=== PATIENT | female | born 1995 | race Caucasian/White ===

== ENCOUNTER 2016-11-01 23:49 | Emergency (ER) | payer OTHER ==
[~2016-11-01] VITALS: Ht 154.9 cm; Wt 63.5 kg
[~2016-11-01 23:49] MED LIST: 'PARAFON FORTE500 M1 PO; BACTRIM DS 8001 TA1 PO; BENADRYL25 MG PO; BIAXIN500 MG PO; BIRTH CONTROL1 EAC1 PO; CLARITIN-D 12 H1 TAB PO; CLARITIN10 MG PO; CLEOCIN150 MG PO; CONCERTA36 MG PO; FLINTSTONES W/I1 CTB PO; FLONASE ALLERG9.9 ML NAS; IBU800 MG PO; KEFLEX500 MG PO; KENALOG 0.1% OI15 GM T; LIDEX 0.05% GEL60 GM PO; LIDEX0.05% T; MACROBID100 M1 PO; MOTRIN400 MG PO; MOTRIN600 MG PO; MOTRIN800 MG PO; NAPROSYN500 MG PO; NASONEX0.05 MG/AC NS; NKHM; PREDNICOT20 MG PO; PREDNISONE10 MG PO; PREDNISONE20 MG PO; PRENATAL1 TA1 PO; PRENATAL1 TA6 PO; ROBITUSSIN AC 110 ML PO; TRAMADOL HCL50 MG PO; TYLENOL W/CODE480 ML PO; TYLENOL W/CODEI1 TA2 PO; ZITHROMAX Z PA250 MG PO; ZITHROMAX200 MG/5 M PO; ZITHROMAX250 MG PO; ZOFRAN ODT4 MG SL; ZYRTEC10 MG PO; Zofran4 MG PO
[2016-11-02] MEDS ORDERED: NORCO 5-325 TA1 EACH PO (01:45)
== END 2016-11-02 01:58 | disposition home or self-care (01) ==
LOC: ED 23:49
DX: S43.005A Unspecified dislocation of left shoulder joint, initial encounter (principal); S29.019A Strain of muscle and tendon of unspecified wall of thorax, initial encounter; F17.200 Nicotine dependence, unspecified, uncomplicated; Z88.0 Allergy status to penicillin; X58.XXXA Exposure to other specified factors, initial encounter; Y93.89 Activity, other specified; Y92.89 Other specified places as the place of occurrence of the external cause; Y99.8 Other external cause status

== ENCOUNTER 2017-01-15 21:29 | Emergency (ER) | payer OTHER ==
[~2017-01-15] VITALS: Ht 167.6 cm; Wt 65.8 kg
[~2017-01-15 21:29] MED LIST changes: +NORCO 5-325 TA1 EACH PO
[2017-01-15] MEDS ORDERED: ZITHROMAX250 MG PO (22:28)
== END 2017-01-15 22:34 | disposition home or self-care (01) ==
LOC: ED 21:29
DX: J40 Bronchitis, not specified as acute or chronic (principal); Z88.0 Allergy status to penicillin; Z88.8 Allergy status to other drugs, medicaments and biological substances

== ENCOUNTER 2017-03-15 16:24 | Emergency (ER) | payer OTHER ==
[~2017-03-15] VITALS: Wt 61.2 kg
[2017-03-15] MEDS ORDERED: ALLEGRA-D 24 H1 EACH PO (18:27)
[2017-03-15] MEDS ORDERED: FLONASE ALLERG9.9 ML NAS (18:27)
[2017-03-15] MEDS ORDERED: ZITHROMAX250 MG PO (18:27)
[2017-03-15] MEDS ORDERED: PROAIR HFA8.5 GM INH (18:28)
== END 2017-03-15 19:37 | disposition home or self-care (01) ==
LOC: ED 16:24
DX: J01.90 Acute sinusitis, unspecified (principal); J40 Bronchitis, not specified as acute or chronic; R11.2 Nausea with vomiting, unspecified; R42 Dizziness and giddiness; J45.909 Unspecified asthma, uncomplicated; F17.200 Nicotine dependence, unspecified, uncomplicated; Z88.0 Allergy status to penicillin

== ENCOUNTER → 2017-08-04 | Outpatient (CLI) | payer OTHER ==
[~2017-08-04] MED LIST changes: +ALLEGRA-D 24 H1 EACH PO; +PROAIR HFA8.5 GM INH
== END | disposition home or self-care (01) ==
LOC: RAD 15:44
DX: S13.4XXA Sprain of ligaments of cervical spine, initial encounter (principal); S16.1XXA Strain of muscle, fascia and tendon at neck level, initial encounter; Z91.81 History of falling; X58.XXXA Exposure to other specified factors, initial encounter; Y93.89 Activity, other specified; Y92.89 Other specified places as the place of occurrence of the external cause; Y99.8 Other external cause status

== ENCOUNTER 2017-10-18 16:23 | Emergency (ER) | payer OTHER ==
[~2017-10-18] VITALS: Ht 154.9 cm; Wt 66.2 kg
[2017-10-18] MEDS ORDERED: MEDROL DOSEPAK4 MG PO (17:11)
[2017-10-18] MEDS ORDERED: PROAIR RESPICL90 MCG INH (17:11)
[2017-10-18] MEDS ORDERED: OMNICEF300 MG PO (17:11)
== END 2017-10-18 17:26 | disposition home or self-care (01) ==
LOC: ED 16:23
DX: J02.0 Streptococcal pharyngitis (principal); J40 Bronchitis, not specified as acute or chronic; F17.200 Nicotine dependence, unspecified, uncomplicated; Z88.0 Allergy status to penicillin; Z88.8 Allergy status to other drugs, medicaments and biological substances

== ENCOUNTER → 2017-11-11 | Outpatient (CLI) | payer OTHER ==
[~2017-11-11] MED LIST changes: +MEDROL DOSEPAK4 MG PO; +OMNICEF300 MG PO; +PROAIR RESPICL90 MCG INH
[2017-11-11 23:35] LABS: BASO % 0.4 % (0.0-1.0); EOS # 0.2 10*3/uL (0.0-0.4); EOS % 2.1 % (1.0-4.0); HEMATOCRIT 39.6 % (37.0-47.0); HEMOGLOBIN 13.3 g/dl (12.0-16.0); LYMPH # 3.3 10*3/uL (1.3-4.4); LYMPH % 36.9 % (27.0-41.0); MEAN CELL VOLUME 95.4 fl (81.0-99.0); MEAN CORPUSCULAR HGB CONC 33.6 g/dl (33.0-37.0); MEAN PLATELET VOLUME 11.1 fl (9.6-12.3); MONO # 0.6 10*3/uL (0.1-1.0); MONO % 6.4 % (3.0-9.0); NEUT # 4.8 10*3/uL (2.3-7.9); PLATELET COUNT AUTOMATED 206 10*3/uL (130-400); RED BLOOD COUNT 4.15 10*6/uL (4.10-5.10); RED CELL DISTRI WIDTH 12.6 % (0-14.5); WHITE BLOOD COUNT 8.9 10*3/uL (4.8-10.8)
== END | disposition home or self-care (01) ==
LOC: LAB 22:50
PROVIDERS: Pediatrics
DX: R21 Rash and other nonspecific skin eruption (principal)

== ENCOUNTER → 2017-11-17 | Outpatient (CLI) | payer OTHER ==
[2017-11-17 13:15] LABS: BASO % 0.6 % (0.0-1.0); EOS # 0.3 10*3/uL (0.0-0.4); EOS % 3.9 % (1.0-4.0); HEMATOCRIT 38.7 % (37.0-47.0); HEMOGLOBIN 12.7 g/dl (12.0-16.0); LYMPH # 3.3 10*3/uL (1.3-4.4); LYMPH % 45.7 % (27.0-41.0); MEAN CELL VOLUME 97.2 fl (81.0-99.0); MEAN CORPUSCULAR HGB 31.9 pg (27.0-31.0); MEAN CORPUSCULAR HGB CONC 32.8 g/dl (33.0-37.0); MEAN PLATELET VOLUME 11.2 fl (9.6-12.3); MONO # 0.6 10*3/uL (0.1-1.0); NEUT % 41.7 % (47.0-73.0); PLATELET COUNT AUTOMATED 179 10*3/uL (130-400); RED BLOOD COUNT 3.98 10*6/uL (4.10-5.10); RED CELL DISTRI WIDTH 12.5 % (0-14.5); WHITE BLOOD COUNT 7.2 10*3/uL (4.8-10.8)
[2017-11-17 14:01] LABS: ALBUMIN 3.8 gm/dl (3.1-4.5); BUN 14 mg/dl (7-24); CHLORIDE 107 mmol/L (98-107); CREATININE 0.67 mg/dL (0.55-1.02); SGOT/AST 16 IU/L (3-35); SGPT/ALT 17 U/L (12-78); SODIUM 141 mmol/L (136-145)
[2017-11-17 14:02] LABS: ALKALINE PHOSPHATASE 65 U/L (45-117)
== END | disposition home or self-care (01) ==
LOC: LAB 12:46
PROVIDERS: Nurse Practitioner Family
DX: L40.9 Psoriasis, unspecified (principal)

== ENCOUNTER 2018-11-20 22:41 | Emergency (ER) | payer OTHER ==
[~2018-11-20] VITALS: Ht 154.9 cm; Wt 68.0 kg
--- NOTE | ~2018-11-20 | EKG ---
[place], [place] ELECTROCARDIOGRAM REPORT NAME: JEMMA MERRITT UNIT #: [id number] ROOM: DOCTOR: EPIPHANY DRAFT REPORT BIRTHDATE: [birth year] [facility] Test Date: 2018-11-20 Test Time: 23:41:17 Pat Name: JEMMA MERRITT Department: ER Room: Gender: F Ergonomics Consultant: Markus Bennett : 1995 Requested By: ALEXANDREA BOWEN Order Number: [id number] Reading MD: Breezy Lowe MD Measurements Intervals [place] Rate: 95 P: 54 SC: 158 QRS: 37 QRSD: 83 T: 5 QT: 354 QTc: 445 Interpretive Statements Sinus rhythm Nonspecific ST T changes Electronically Signed On 11-24-2018 4:13:14 PDT by Breezy Lowe MD CM:[email or web address]:ELECTROCARDIOGRAM REPORT [id number] ALEXANDREA NESS DRAFT REPORT ALEXANDREA BOWEN DO
[2018-11-20 23:51] LABS: BASO # 0.1 10*3/uL (0.0-0.1); BASO % 0.5 % (0.0-1.0); EOS # 0.3 10*3/uL (0.0-0.4); EOS % 2.6 % (1.0-4.0); HEMATOCRIT 42.5 % (37.0-47.0); HEMOGLOBIN 14.2 g/dl (12.0-16.0); LYMPH # 3.1 10*3/uL (1.3-4.4); LYMPH % 31.5 % (27.0-41.0); MEAN CELL VOLUME 97.5 fl (81.0-99.0); MEAN CORPUSCULAR HGB 32.6 pg (27.0-31.0); MEAN CORPUSCULAR HGB CONC 33.4 g/dl (33.0-37.0); MEAN PLATELET VOLUME 10.8 fl (9.6-12.3); MONO # 0.6 10*3/uL (0.1-1.0); MONO % 6.5 % (3.0-9.0); NEUT # 5.8 10*3/uL (2.3-7.9); NEUT % 58.8 % (47.0-73.0); PLATELET COUNT AUTOMATED 191 10*3/uL (130-400); RED BLOOD COUNT 4.36 10*6/uL (4.10-5.10); RED CELL DISTRI WIDTH 12.2 % (0-14.5); WHITE BLOOD COUNT 9.8 10*3/uL (4.8-10.8)
[2018-11-21 00:06] LABS: ALBUMIN 3.8 gm/dl (3.1-4.5); ALKALINE PHOSPHATASE 78 U/L (45-117); BUN 10 mg/dl (7-24); CHLORIDE 106 mmol/L (98-107); CREATININE 0.74 mg/dL (0.55-1.02); POTASSIUM 4.1 mmol/L (3.5-5.1); SGOT/AST 18 IU/L (3-35); SGPT/ALT 20 U/L (12-78); SODIUM 137 mmol/L (136-145); TOTAL PROTEIN 7.5 gm/dL (6.4-8.2)
[2018-11-21] MEDS ORDERED: Tobrex Ophth S2.5 ML OPH (01:56)
== END 2018-11-21 01:53 | disposition home or self-care (01) ==
LOC: ED 22:41
PROVIDERS: Emergency Medicine
DX: H10.9 Unspecified conjunctivitis (principal); R55 Syncope and collapse; Z88.0 Allergy status to penicillin; Z91.048 Other nonmedicinal substance allergy status

== ENCOUNTER 2019-03-12 20:22 | Emergency (ER) | payer OTHER ==
[~2019-03-12] VITALS: Ht 154.9 cm; Wt 72.6 kg
[~2019-03-12 20:22] MED LIST changes: +Tobrex Ophth S2.5 ML OPH
[2019-03-12 22:00] LABS: BASO # 0.1 10*3/uL (0.0-0.1); BASO % 0.8 % (0.0-1.0); EOS # 0.2 10*3/uL (0.0-0.4); EOS % 3.2 % (1.0-4.0); HEMATOCRIT 35.6 % (37.0-47.0); HEMOGLOBIN 11.9 g/dl (12.0-16.0); LYMPH # 2.9 10*3/uL (1.3-4.4); LYMPH % 46.5 % (27.0-41.0); MEAN CELL VOLUME 99.2 fl (81.0-99.0); MEAN CORPUSCULAR HGB 33.1 pg (27.0-31.0); MEAN CORPUSCULAR HGB CONC 33.4 g/dl (33.0-37.0); MEAN PLATELET VOLUME 10.8 fl (9.6-12.3); MONO # 0.6 10*3/uL (0.1-1.0); MONO % 10.4 % (3.0-9.0); NEUT # 2.4 10*3/uL (2.3-7.9); NEUT % 38.9 % (47.0-73.0); PLATELET COUNT AUTOMATED 149 10*3/uL (130-400); RED BLOOD COUNT 3.59 10*6/uL (4.10-5.10); RED CELL DISTRI WIDTH 12.8 % (0-14.5); WHITE BLOOD COUNT 6.2 10*3/uL (4.8-10.8)
[2019-03-12 22:19] LABS: ALBUMIN 3.3 gm/dl (3.1-4.5); ALKALINE PHOSPHATASE 67 U/L (45-117); BUN 7 mg/dl (7-24); CHLORIDE 108 mmol/L (98-107); CREATININE 0.86 mg/dL (0.55-1.02); LIPASE 69 U/L (73-393); POTASSIUM 3.5 mmol/L (3.5-5.1); SGOT/AST 11 IU/L (3-35); SODIUM 140 mmol/L (136-145); TOTAL PROTEIN 6.5 gm/dL (6.4-8.2)
[2019-03-12 22:24] LABS: TROPONIN I < 0.015 ng/ml (<0.045)
[2019-03-12 22:29] LABS: SGPT/ALT 14 U/L (12-78); THYROID STIM HORMONE (HS) 0.586 uIU/ml (0.358-4.75)
[2019-03-13] LABS: BILIRUBIN NEGATIVE (NEGATIVE); BLOOD NEGATIVE (NEGATIVE); CLARITY CLEAR (CLEAR); COLOR YELLOW (YELLOW); GLUCOSE NEGATIVE (NEGATIVE); KETONE TRACE (NEGATIVE); LEUKO ESTERASE NEGATIVE (NEGATIVE); NITRITE NEGATIVE (NEGATIVE)
[2019-03-13 00:15] LABS: RBC 0-2 rbc/hpf (0-2)
[2019-03-13 00:16] LABS: BACTERIA 2+; MUCOUS TRACE; WBC 0-2 wbc/hpf (0-5)
[2019-03-13] MEDS ORDERED: MACROBID100 M1 PO (00:59)
== END 2019-03-13 00:59 | disposition home or self-care (01) ==
LOC: ED 20:22
PROVIDERS: Emergency Medicine Emergency Medical Services
DX: R82.71 Bacteriuria (principal); D64.9 Anemia, unspecified; R06.02 Shortness of breath; R05 Cough; F17.200 Nicotine dependence, unspecified, uncomplicated; Z88.0 Allergy status to penicillin

== ENCOUNTER 2019-03-18 22:12 | Emergency (ER) | payer OTHER ==
[~2019-03-18] VITALS: Ht 154.9 cm; Wt 68.0 kg
[2019-03-18] MEDS ORDERED: CLARITHROMYCIN500 MG PO (22:14)
== END 2019-03-18 23:05 | disposition home or self-care (01) ==
LOC: ED 22:12
DX: L98.9 Disorder of the skin and subcutaneous tissue, unspecified (principal); F17.200 Nicotine dependence, unspecified, uncomplicated; Z88.0 Allergy status to penicillin

== ENCOUNTER 2019-07-14 14:45 | Emergency (ER) | payer OTHER ==
[~2019-07-14] VITALS: Ht 154.9 cm; Wt 68.0 kg
[~2019-07-14 14:45] MED LIST changes: +CLARITHROMYCIN500 MG PO
== END 2019-07-14 17:40 | disposition home or self-care (01) ==
LOC: ED 14:45
DX: M25.512 Pain in left shoulder (principal); Z88.0 Allergy status to penicillin; X50.0XXA Overexertion from strenuous movement or load, initial encounter; Y93.89 Activity, other specified; Y92.89 Other specified places as the place of occurrence of the external cause; Y99.0 Civilian activity done for income or pay

== ENCOUNTER 2020-01-21 03:45 | Emergency (ER) | payer OTHER ==
[~2020-01-21] VITALS: Ht 154.9 cm; Wt 68.0 kg
[2020-01-21] MEDS ORDERED: CLARITIN10 MG PO (04:45)
== END 2020-01-21 05:18 | disposition home or self-care (01) ==
LOC: ED 03:45
DX: J06.9 Acute upper respiratory infection, unspecified (principal); F17.200 Nicotine dependence, unspecified, uncomplicated; Z88.0 Allergy status to penicillin; Z88.8 Allergy status to other drugs, medicaments and biological substances; Z79.899 Other long term (current) drug therapy

== ENCOUNTER 2020-01-29 14:53 | Emergency (ER) | payer OTHER ==
[~2020-01-29] VITALS: Ht 167.6 cm; Wt 70.3 kg
== END 2020-01-29 16:10 | disposition home or self-care (01) ==
LOC: ED 14:53
PROVIDERS: Emergency Medicine
DX: Z20.2 Contact with and (suspected) exposure to infections with a predominantly sexual mode of transmission (principal); Z88.0 Allergy status to penicillin; Z88.8 Allergy status to other drugs, medicaments and biological substances; Z79.899 Other long term (current) drug therapy

== ENCOUNTER 2020-02-27 19:39 | Emergency (ER) | payer OTHER ==
[~2020-02-27] VITALS: Wt 68.9 kg
[2020-02-27] MEDS ORDERED: SEPTDS PO (21:04)
== END 2020-02-27 21:30 | disposition home or self-care (01) ==
LOC: ED 19:39
DX: H60.91 Unspecified otitis externa, right ear (principal); L98.8 Other specified disorders of the skin and subcutaneous tissue; Z88.0 Allergy status to penicillin; Z91.048 Other nonmedicinal substance allergy status; Z79.899 Other long term (current) drug therapy

== ENCOUNTER → 2020-03-30 | Outpatient (CLI) | payer OTHER ==
[~2020-03-30] MED LIST changes: +SEPTDS PO
== END | disposition home or self-care (01) ==
LOC: MAMMO 09:00
PROVIDERS: ATTEND Family Medicine
DX: N63.13 Unspecified lump in the right breast, lower outer quadrant (principal); Z80.3 Family history of malignant neoplasm of breast

== ENCOUNTER 2020-04-23 01:45 | Emergency (ER) | payer OTHER ==
[~2020-04-23] VITALS: Ht 154.9 cm; Wt 66.7 kg
[2020-04-23] MEDS ORDERED: ATIVAN1 MG PO (03:51)
== END 2020-04-23 04:04 | disposition home or self-care (01) ==
LOC: ED 01:45
DX: S51.812A Laceration without foreign body of left forearm, initial encounter (principal); F32.9 Major depressive disorder, single episode, unspecified; F41.9 Anxiety disorder, unspecified; Z88.0 Allergy status to penicillin; W45.8XXA Other foreign body or object entering through skin, initial encounter; Y93.89 Activity, other specified; Y92.89 Other specified places as the place of occurrence of the external cause; Y99.8 Other external cause status

== ENCOUNTER 2020-05-04 21:03 | Emergency (ER) | payer OTHER ==
[~2020-05-04] VITALS: Ht 154.9 cm; Wt 66.7 kg
[~2020-05-04 21:03] MED LIST changes: +ATIVAN1 MG PO
[2020-05-04 22:01] LABS: BASO % 0.5 % (0.0-1.0); EOS # 0.2 10*3/uL (0.0-0.4); EOS % 2.6 % (1.0-4.0); HEMATOCRIT 39.9 % (37.0-47.0); MEAN CELL VOLUME 97.1 fl (81.0-99.0); MEAN CORPUSCULAR HGB 32.6 pg (27.0-31.0); MEAN CORPUSCULAR HGB CONC 33.6 g/dl (33.0-37.0); MEAN PLATELET VOLUME 10.9 fl (9.6-12.3); MONO # 0.5 10*3/uL (0.1-1.0); MONO % 6.8 % (3.0-9.0); NEUT # 4.1 10*3/uL (2.3-7.9); NEUT % 51.1 % (47.0-73.0); PLATELET COUNT AUTOMATED 168 10*3/uL (130-400); RED BLOOD COUNT 4.11 10*6/uL (4.10-5.10); RED CELL DISTRI WIDTH 12.3 % (0-14.5)
[2020-05-04 22:14] LABS: ALBUMIN 3.6 gm/dl (3.1-4.5); ALKALINE PHOSPHATASE 58 U/L (45-117); BUN 6 mg/dl (7-24); CHLORIDE 108 mmol/L (98-107); CREATININE 0.77 mg/dL (0.55-1.02); LIPASE 49 U/L (73-393); POTASSIUM 3.4 mmol/L (3.5-5.1); SGOT/AST 9 IU/L (3-35); SGPT/ALT 14 U/L (12-78); SODIUM 141 mmol/L (136-145); TOTAL PROTEIN 6.7 gm/dL (6.4-8.2)
[2020-05-04 22:33] LABS: BILIRUBIN Negative (Negative); BLOOD Negative (Negative); CLARITY Cloudy (Clear); COLOR Yellow (Yellow); GLUCOSE Negative (Negative); KETONE Trace (Negative); LEUKO ESTERASE 1+ (Negative); NITRITE Positive (Negative); SPECIFIC GRAVITY 1.015 (1.001-1.030)
[2020-05-04 22:42] LABS: BACTERIA 3+; WBC 16-20 wbc/hpf (0-5)
[2020-05-05] MEDS ORDERED: SEPTDS PO (00:14)
== END 2020-05-05 00:39 | disposition home or self-care (01) ==
LOC: ED 21:03
PROVIDERS: Emergency Medicine
DX: N39.0 Urinary tract infection, site not specified (principal); R10.13 Epigastric pain; Z88.0 Allergy status to penicillin

== ENCOUNTER → 2020-05-10 | Outpatient (CLI) | payer OTHER ==
[2020-05-10 16:08] LABS: URINE AMPHETAMINES < 1000 (1000ng/ml); URINE BARBITURATES < 200 (200ng/ml); URINE BENZODIAZEPINES < 200 (200ng/ml); URINE CANNABINOIDS (THC) < 50 (50ng/ml); URINE COCAINE < 300 (300ng/ml); URINE METHADONE < 300 (300ng/ml); URINE OPIATES < 300 (300ng/ml)
[2020-05-10 16:17] LABS: URINE PHENCYCLIDINE < 25 (25ng/ml)
== END | disposition home or self-care (01) ==
LOC: LAB 15:39
PROVIDERS: ATTEND Registered Nurse Psychiatric/Mental Health
DX: F90.9 Attention-deficit hyperactivity disorder, unspecified type (principal)

== ENCOUNTER 2020-07-17 00:41 | Emergency (ER) | payer OTHER ==
[~2020-07-17] VITALS: Ht 154.9 cm; Wt 66.2 kg
[2020-07-17 04:19] LABS: BASO % 0.4 % (0.0-1.0); EOS # 0.1 10*3/uL (0.0-0.4); EOS % 0.5 % (1.0-4.0); HEMATOCRIT 39.7 % (37.0-47.0); LYMPH # 3.4 10*3/uL (1.3-4.4); LYMPH % 37.5 % (27.0-41.0); MEAN CELL VOLUME 98.8 fl (81.0-99.0); MEAN CORPUSCULAR HGB 31.8 pg (27.0-31.0); MEAN CORPUSCULAR HGB CONC 32.2 g/dl (33.0-37.0); MEAN PLATELET VOLUME 10.3 fl (9.6-12.3); MONO # 0.6 10*3/uL (0.1-1.0); MONO % 6.1 % (3.0-9.0); NEUT % 55.3 % (47.0-73.0); PLATELET COUNT AUTOMATED 195 10*3/uL (130-400); RED BLOOD COUNT 4.02 10*6/uL (4.10-5.10); WHITE BLOOD COUNT 9.1 10*3/uL (4.8-10.8)
[2020-07-17 04:36] LABS: ALBUMIN 3.6 gm/dl (3.1-4.5); ALKALINE PHOSPHATASE 62 U/L (45-117); BUN 13 mg/dl (7-24); CHLORIDE 110 mmol/L (98-107); CREATININE 0.74 mg/dL (0.55-1.02); POTASSIUM 3.9 mmol/L (3.5-5.1); SGOT/AST 17 IU/L (3-35); SGPT/ALT 19 U/L (12-78); SODIUM 139 mmol/L (136-145)
[2020-07-17 05:02] LABS: ACETAMINOPHEN (TYLENOL) < 5.0 ug/ml (10-30); ETHYL ALCOHOL < 3.0 mg/dl (<3)
== END 2020-07-17 11:00 | disposition home or self-care (01) ==
LOC: ED 00:41
PROVIDERS: Emergency Medicine
DX: F43.21 Adjustment disorder with depressed mood (principal); S51.812A Laceration without foreign body of left forearm, initial encounter; F41.9 Anxiety disorder, unspecified; L40.9 Psoriasis, unspecified; F17.200 Nicotine dependence, unspecified, uncomplicated; Z91.048 Other nonmedicinal substance allergy status; Z88.0 Allergy status to penicillin; Z79.899 Other long term (current) drug therapy; Z79.2 Long term (current) use of antibiotics; X78.9XXA Intentional self-harm by unspecified sharp object, initial encounter; Y93.89 Activity, other specified; Y92.89 Other specified places as the place of occurrence of the external cause; Y99.8 Other external cause status

== ENCOUNTER 2021-05-31 11:57 | Emergency (ER) | payer OTHER ==
[~2021-05-31] VITALS: Ht 154.9 cm; Wt 68.0 kg
[2021-05-31 12:43] LABS: BASO % 0.4 % (0.0-1.0); EOS # 0.1 10*3/uL (0.0-0.4); EOS % 1.8 % (1.0-4.0); HEMATOCRIT 39.6 % (37.0-47.0); LYMPH # 2.5 10*3/uL (1.3-4.4); LYMPH % 44.8 % (27.0-41.0); MEAN CELL VOLUME 97.5 fl (81.0-99.0); MEAN CORPUSCULAR HGB CONC 32.8 g/dl (33.0-37.0); MEAN PLATELET VOLUME 10.6 fl (9.6-12.3); MONO # 0.5 10*3/uL (0.1-1.0); MONO % 8.9 % (3.0-9.0); NEUT # 2.4 10*3/uL (2.3-7.9); NEUT % 43.9 % (47.0-73.0); PLATELET COUNT AUTOMATED 227 10*3/uL (130-400); RED BLOOD COUNT 4.06 10*6/uL (4.10-5.10); RED CELL DISTRI WIDTH 12.3 % (0-14.5); WHITE BLOOD COUNT 5.5 10*3/uL (4.8-10.8)
[2021-05-31 12:55] LABS: BILIRUBIN Negative (Negative); BLOOD Negative (Negative); CLARITY Turbid (Clear); COLOR Yellow (Yellow); GLUCOSE Negative (Negative); KETONE Trace (Negative); LEUKO ESTERASE 1+ (Negative); NITRITE Negative (Negative); SPECIFIC GRAVITY >= 1.030 (1.001-1.030); UROBILINOGEN 0.2 E.U./dl (0.0-1.0)
[2021-05-31 12:58] LABS: ALBUMIN 3.4 gm/dl (3.1-4.5); ALKALINE PHOSPHATASE 56 U/L (45-117); BUN 9 mg/dl (7-24); CHLORIDE 111 mmol/L (98-107); CREATININE 0.71 mg/dL (0.55-1.02); POTASSIUM 4.3 mmol/L (3.5-5.1); SGOT/AST 8 IU/L (3-35); SGPT/ALT 17 U/L (12-78); SODIUM 139 mmol/L (136-145); TOTAL PROTEIN 7.2 gm/dL (6.4-8.2)
[2021-05-31 13:04] LABS: BETA-HCG, QUANT < 1.0 mIU/mL (1-3)
[2021-05-31 13:25] LABS: BACTERIA 3+; EPITHELIAL CELLS 21-30
== END 2021-05-31 15:27 | disposition home or self-care (01) ==
LOC: ED 11:57
PROVIDERS: Physician Assistant
DX: N91.2 Amenorrhea, unspecified (principal); Z88.0 Allergy status to penicillin

== ENCOUNTER 2021-07-13 17:23 | Emergency (ER) | payer OTHER ==
[~2021-07-13] VITALS: Ht 154.9 cm; Wt 70.3 kg
== END 2021-07-13 20:30 | disposition home or self-care (01) ==
LOC: ED 17:23
DX: G43.909 Migraine, unspecified, not intractable, without status migrainosus (principal); Z88.0 Allergy status to penicillin

== ENCOUNTER 2021-11-22 09:52 | Emergency (ER) | payer OTHER ==
[~2021-11-22] VITALS: Ht 154.9 cm; Wt 83.0 kg
== END 2021-11-22 10:35 | disposition left against medical advice (07) ==
LOC: ED 09:52
DX: R06.02 Shortness of breath (principal); Z53.21 Procedure and treatment not carried out due to patient leaving prior to being seen by health care provider

== ENCOUNTER 2022-05-31 11:07 | Emergency (ER) | payer OTHER ==
[~2022-05-31] VITALS: Ht 154.9 cm; Wt 72.6 kg
[2022-05-31] MEDS ORDERED: METRONIDAZOLE500 M1 PO (11:43)
== END 2022-05-31 11:54 | disposition home or self-care (01) ==
LOC: ED 11:07
DX: K04.7 Periapical abscess without sinus (principal); Z88.0 Allergy status to penicillin

== ENCOUNTER → 2022-11-18 | Day surgery (SDC) | payer OTHER ==
[2022-11-14 14:41] VITALS: BP 134/82
[~2022-11-18] VITALS: Ht 154.9 cm; Wt 81.6 kg
[2022-11-18] VITALS (8 sets, daily range): BP systolic 84–105; BP diastolic 33–65
[~2022-11-18] MED LIST changes: +METRONIDAZOLE500 M1 PO; +Percocet 325 MG1 TAB PO
== END | disposition home or self-care (01) ==
LOC: SDC 09-12 12:30
PROVIDERS: ATTEND Obstetrics & Gynecology
DX: Z30.2 Encounter for sterilization (principal); F90.9 Attention-deficit hyperactivity disorder, unspecified type; F41.9 Anxiety disorder, unspecified; F31.9 Bipolar disorder, unspecified; F43.10 Post-traumatic stress disorder, unspecified; J45.909 Unspecified asthma, uncomplicated; Z87.891 Personal history of nicotine dependence; Z79.899 Other long term (current) drug therapy

== ENCOUNTER → 2023-09-22 | Outpatient (CLI) | payer OTHER ==
[2023-09-22 14:20] LABS: BILIRUBIN Negative (Negative); BLOOD Negative (Negative); COLOR Yellow (Yellow); GLUCOSE Negative (Negative); KETONE Negative (Negative); LEUKO ESTERASE Negative (Negative); NITRITE Negative (Negative); PH 5.5 (4.5-8.0); SPECIFIC GRAVITY 1.025 (1.001-1.030); UROBILINOGEN 0.2 E.U./dl (0.0-1.0)
[2023-09-22 14:27] LABS: HEMATOCRIT 39.2 % (37.0-47.0); MEAN CELL VOLUME 94.7 fl (81.0-99.0); MEAN CORPUSCULAR HGB 30.2 pg (27.0-31.0); MEAN CORPUSCULAR HGB CONC 31.9 g/dl (33.0-37.0); MEAN PLATELET VOLUME 10.7 fl (9.6-12.3); PLATELET COUNT AUTOMATED 252 10*3/uL (130-400); RED BLOOD COUNT 4.14 10*6/uL (4.10-5.10); RED CELL DISTRI WIDTH 13.4 % (0-14.5); RETICULOCYTE % 0.93 % (0.50-2.50); WHITE BLOOD COUNT 5.4 10*3/uL (4.8-10.8)
[2023-09-22 14:33] LABS: CLARITY Clear (Clear)
[2023-09-22 14:45] LABS: WBC 0-2 wbc/hpf (0-5)
[2023-09-22 15:00] LABS: ALKALINE PHOSPHATASE 70 U/L (46-116); BUN 13 mg/dl (9-23); CHLORIDE 105 mmol/L (98-107); CHOLESTEROL 142 mg/dL (<200); GAMMA GLUTAMYL TRANSPEPTIDASE 15 U/L (0-73); LDL CHOLESTEROL 80 mg/dL (9-159); POTASSIUM 3.6 mmol/L (3.4-5.1); SGPT/ALT 11 U/L (5-49); T3 UPTAKE 25.5 % (22.4-36.7); TOTAL PROTEIN 7.1 gm/dL (6.0-8.0); TRIGLYCERIDES 63 mg/dl (<150); URIC ACID 4.5 mg/dL (3.1-7.8)
[2023-09-22 16:30] LABS: ATYPICAL LYMPHS 1 % (0-0); PLATELET SUFFICIENCY NORMAL (NORMAL); TOTAL CELLS COUNTED 100 #CELLS
[2023-09-22 16:32] LABS: OVALOCYTES FEW
[2023-09-23 06:08] LABS: TOTAL PROTEIN, SERUM 6.8 g/dL (6.0-8.5)
[2023-09-23 11:08] LABS: A/G RATIO 1.3 (0.7-1.7); ALBUMIN 3.8 g/dL (2.9-4.4); ALPHA-1-GLOBULIN 0.2 g/dL (0.0-0.4); ALPHA-2-GLOBULIN 0.7 g/dL (0.4-1.0); BETA GLOBULIN 1.1 g/dL (0.7-1.3); GAMMA GLOBULIN 0.9 g/dL (0.4-1.8)
[2023-09-23 12:08] LABS: ANTI-DSDNA ANTIBODIES <1 IU/mL (0-9)
[2023-09-27 01:06] LABS: CODFISH, IGE <0.10 kU/L (Class 0); EGG WHITE, IGE <0.10 kU/L (Class 0); MILK (COW), IGE <0.10 kU/L (Class 0); PEANUT, IGE <0.10 kU/L (Class 0); SOYBEAN, IGE <0.10 kU/L (Class 0); WHEAT, IGE <0.10 kU/L (Class 0)
[2023-09-27 06:08] LABS: ALTERNARIA ALTERNATA, IGE <0.10 kU/L (Class 0); AMERICAN ELM, IGE <0.10 kU/L (Class 0); ASPERGILLUS FUMIGATU, IGE <0.10 kU/L (Class 0); BERMUDA GRASS, IGE <0.10 kU/L (Class 0); BIRCH, COMMON SILVER IGE <0.10 kU/L (Class 0); CLADOSPORIUM HERBARU, IGE <0.10 kU/L (Class 0); D FARINAE MITE <0.10 kU/L (Class 0); D PTERONYSSINUS <0.10 kU/L (Class 0); DOG DANDER, IGE <0.10 kU/L (Class 0); MAPLE LEAF SYCAMORE, IGE <0.10 kU/L (Class 0); MAPLE/BOX ELDER, IGE <0.10 kU/L (Class 0); MOUSE URINE IGE <0.10 kU/L (Class 0); PENICILLIUM CHRYSOGENUM, IGE <0.10 kU/L (Class 0); ROUGH PIGWEED, IGE <0.10 kU/L (Class 0); SHEEP SORREL (DOCK), IGE <0.10 kU/L (Class 0); SHORT RAGWEED, IGE <0.10 kU/L (Class 0); TIMOTHY, IGE <0.10 kU/L (Class 0); WALNUT TREE, IGE <0.10 kU/L (Class 0); WHITE ASH, IGE <0.10 kU/L (Class 0); WHITE MULBERRY, IGE <0.10 kU/L (Class 0); WHITE OAK, IGE <0.10 kU/L (Class 0)
== END | disposition home or self-care (01) ==
LOC: LAB 13:38
PROVIDERS: ATTEND Family Medicine
DX: E78.5 Hyperlipidemia, unspecified (principal); R79.89 Other specified abnormal findings of blood chemistry; R53.83 Other fatigue; E55.9 Vitamin D deficiency, unspecified

== ENCOUNTER 2023-12-09 17:27 | Emergency (ER) | payer OTHER ==
[~2023-12-09] VITALS: Ht 157.4 cm; Wt 69.4 kg
[2023-12-09] MEDS ORDERED: RIZATRIPTAN10 MG PO (17:41)
[2023-12-09] MEDS ORDERED: TOPIRAMATE25 M3 PO (17:42)
[2023-12-09] MEDS ORDERED: DEXTROAMPH SACC20 M1 PO (17:42)
[2023-12-09] MEDS ORDERED: FEROSUL325 M1 PO (17:42)
[2023-12-09] MEDS ORDERED: VITAMIN D3125 MC1 PO (17:43)
[2023-12-09] MEDS ORDERED: MULTIVITAMIN PO (17:43)
[2023-12-09] MEDS ORDERED: ACETAMINOPHEN 325 MG TAB PO ONE (17:55)
[2023-12-09] MEDS ORDERED: Ondansetron Hydrochloride 4 MG TAB PO ONE (19:45)
[2023-12-09] MEDS ORDERED: Acetaminophen/Hydrocodone 5 MG/325 MG TABLET PO ONE ×2 (19:45→21:00)
[2023-12-09] MEDS ORDERED: METHOCARBAMOL 500 MG TAB PO ONE (19:45)
[2023-12-09] MEDS ORDERED: HYDROCODONE-AC1 EAC1 PO (20:57)
== END 2023-12-09 21:44 | disposition home or self-care (01) ==
LOC: ED 17:27
DX: S43.032A Inferior subluxation of left humerus, initial encounter (principal); M54.2 Cervicalgia; M54.50 Low back pain, unspecified; M25.562 Pain in left knee; M25.552 Pain in left hip; F41.9 Anxiety disorder, unspecified; Z91.048 Other nonmedicinal substance allergy status; Z88.0 Allergy status to penicillin; Z79.899 Other long term (current) drug therapy; V49.88XA Car occupant (driver) (passenger) injured in other specified transport accidents, initial encounter; Y93.89 Activity, other specified; Y92.488 Other paved roadways as the place of occurrence of the external cause; Y99.8 Other external cause status

== ENCOUNTER → 2025-03-23 | Outpatient (CLI) | payer OTHER ==
[~2025-03-23] MED LIST changes: +DEXTROAMPH SACC20 M1 PO; +FEROSUL325 M1 PO; +HYDROCODONE-AC1 EAC1 PO; +MULTIVITAMIN PO; +RIZATRIPTAN10 MG PO; +TOPIRAMATE25 M3 PO; +VITAMIN D3125 MC1 PO
== END | disposition home or self-care (01) ==
LOC: RAD 14:59
PROVIDERS: ATTEND Family Medicine
DX: M25.474 Effusion, right foot (principal); M25.571 Pain in right ankle and joints of right foot